=== PATIENT | male | born 1965 | race Caucasian/White ===

== ENCOUNTER 2019-01-07 20:23 | Emergency (ER) | payer MEDICARE, MEDICAID, SELFPAY ==
[2019-01-07 20:30] VITALS: BP 137/83; PULSE 67; RESP 17; TEMP 36.9; O2SAT 96; BMI 19.8
--- NOTE | 2019-01-07 20:54 | HMH.EDWNDL ---
ED Disposition Clinical Impression: Laceration Disposition: Home, Self-Care Condition on Discharge: Good Instructions: DI for Laceration Repair Additional Instructions: suture out 10-12 days and recheck if needed Prescriptions: cephALEXin [Keflex 500mg Cap] 500 mg PO TID #30 cap Referrals: Provider,Referral, [Referring] - - Critical Care Critical Care Time: No Attestation: On 01/07/19, the high probability of a clinically significant, sudden or life threatening deterioration of the following system(s) required my full and direct attention, intervention and personal management. The time I documented below is in addition to time spent performing reported procedures but includes the following listed in this critical care notation. Medical Decision Making - Medical Records Medical records reviewed: Yes: I reviewed the patient's medical records. - [place]ington Inquiry Pt receiving controlled substance: No Vital Signs: 01/07/19 20:30 Temperature 98.4 F Temperature Source Oral Pulse Rate [Right] 67 Respiratory Rate 17 Blood Pressure [Right Arm] 137/83 Blood Pressure Mean [Right Arm] 101 02 Sat by Pulse Oximetry 96 Oxygen Delivery Method Room Air Wound/Laceration HPI - General Chief Complaint: Wound/Laceration Stated Complaint: Cut on Hand Time Seen by Provider: 01/07/19 20:40 Mode of Arrival: Ambulatory Limitations: No Limitations Description of Symptoms (Recalled from ER Triage Doc. by RN): Laceration left hand - History of Present Illness HPI narrative: lac lt thumb last pm - he denied any other c/o Onset (ago): day(s) Extremity Location: Left: hand Place: home Patient tetanus UTD: Yes Context: accidental Associated symptoms: none - Related Data Previous Rx's Medication Instructions Recorded cephALEXin [Keflex 500mg Cap] 500 mg PO TID #30 cap 01/07/19 Allergies Allergy/AdvReac Type Severity Reaction Status Date / Time No Known Allergies Allergy Unverified 07/13/17 14:32 [facility] History - Hepatitis A Screen Drug use history?: Yes High risk sexual behaviors?: No History of sexually transmitted infection?: No Currently employed?: No Childcare worker?: No Do you have indoor plumbing?: Yes Do you have electricity?: Yes Attestation statement:: This patient has been screened for Hepatitis A risk factors. I have reviewed the patient's past medical history: Yes Medical History: Denies:: Cancer, Diabetes Mellitus Type 1, Diabetes Mellitus Type 2, MRSA Amputation: No Fractures: Yes (cheek, right leg) - Social History Educational Level: Attended Grade School Smoking Status: Current every day smoker Tobacco Type: cigarettes # Packs/Day (cigarettes): 3 #Yrs smoked (if former smoker): 40 Alcohol Intake: current Alcohol Intake Frequency:: 3 or more drinks per day Substance Use Type: marijuana Last Used Substance: unknown Occupational Status: unemployed Housing: apartment Household Members: none - Psychiatric History Expresses thoughts of harming self/others: None Suicide Plan Description: No Plan ROS Obtained: Yes All systems reviewed & no additional complaints - Constitutional Constitutional: Denies fever(s) - Eyes Eyes: Denies change in vision - ENT Ears, Nose, Mouth, and Throat: Denies sore throat - Cardiovascular Cardiovascular: Denies chest pain at rest - Respiratory Respiratory: No cough - Gastrointestinal Gastrointestingal: Denies: abdominal pain - Genitourinary Male Genitourinary: Denies flank pain - Musculoskeletal Musculoskeletal: Denies joint pain, Denies joint swelling - Integumentary/Breasts Skin/Breast: Reports as per HPI, Denies rash, Reports other (lac 1.5 cm lt thumb ) - Neurologic Neurologic: Denies seizure-like activity Physical Exam - General General appearance: alert - Head Head exam: normocephalic - Eye Eye exam: Present: PERRL, EOMI - ENT ENT exam: Present: normal oropharynx - Neck Neck exam: Prese
--- NOTE | 2019-01-07 20:57 | ED_ITS ---
ED Disposition Clinical Impression: Laceration Disposition: Home, Self-Care Condition on Discharge: Good Instructions: DI for Laceration Repair Additional Instructions: suture out 10-12 days and recheck if needed Prescriptions: cephALEXin [Keflex 500mg Cap] 500 mg PO TID #30 cap Referrals: Provider,Referral, [Referring] - - Critical Care Critical Care Time: No Attestation: On 01/07/19, the high probability of a clinically significant, sudden or life threatening deterioration of the following system(s) required my full and direct attention, intervention and personal management. The time I documented below is in addition to time spent performing reported procedures but includes the following listed in this critical care notation. Medical Decision Making - Medical Records Medical records reviewed: Yes: I reviewed the patient's medical records. - Remington Inquiry Pt receiving controlled substance: No Vital Signs: 01/07/19 20:30 Temperature 98.4 F Temperature Source Oral Pulse Rate [Right] 67 Respiratory Rate 17 Blood Pressure [Right Arm] 137/83 Blood Pressure Mean [Right Arm] 101 02 Sat by Pulse Oximetry 96 Oxygen Delivery Method Room Air Wound/Laceration HPI - General Chief Complaint: Wound/Laceration Stated Complaint: Cut on Hand Time Seen by Provider: 01/07/19 20:40 Mode of Arrival: Ambulatory Limitations: No Limitations Description of Symptoms (Recalled from ER Triage Doc. by RN): Laceration left hand - History of Present Illness HPI narrative: lac lt thumb last pm - he denied any other c/o Onset (ago): day(s) Extremity Location: Left: hand Place: home Patient tetanus UTD: Yes Context: accidental Associated symptoms: none - Related Data Previous Rx's Medication Instructions Recorded cephALEXin [Keflex 500mg Cap] 500 mg PO TID #30 cap 01/07/19 Allergies Allergy/AdvReac Type Severity Reaction Status Date / Time No Known Allergies Allergy Unverified 07/13/17 14:32 [facility] History - Hepatitis A Screen Drug use history?: Yes High risk sexual behaviors?: No History of sexually transmitted infection?: No Currently employed?: No Childcare worker?: No Do you have indoor plumbing?: Yes Do you have electricity?: Yes Attestation statement:: This patient has been screened for Hepatitis A risk factors. I have reviewed the patient's past medical history: Yes Medical History: Denies:: Cancer, Diabetes Mellitus Type 1, Diabetes Mellitus Type 2, MRSA Amputation: No Fractures: Yes (cheek, right leg) - Social History Educational Level: Attended Grade School Smoking Status: Current every day smoker Tobacco Type: cigarettes # Packs/Day (cigarettes): 3 #Yrs smoked (if former smoker): 40 Alcohol Intake: current Alcohol Intake Frequency:: 3 or more drinks per day Substance Use Type: marijuana Last Used Substance: unknown Occupational Status: unemployed Housing: apartment Household Members: none - Psychiatric History Expresses thoughts of harming self/others: None Suicide Plan Description: No Plan ROS Obtained: Yes All systems reviewed & no additional complaints - Constitutional Constitutional: Denies fever(s) - Eyes Eyes: Denies change
[2019-01-07 21:14] VITALS: BP 131/76; PULSE 64; RESP 17; TEMP 36.9; O2SAT 97
== END 2019-01-07 21:14 | disposition home or self-care (01) ==
PROVIDERS: Emergency Provider Emergency Medicine; PCP Family Medicine
DX: S61.012A Laceration without foreign body of left thumb without damage to nail, initial encounter (principal); F17.210 Nicotine dependence, cigarettes, uncomplicated
CPT/HCPCS: 12001; 99282

== ENCOUNTER 2024-12-25 21:09 | Emergency (ER) | payer MEDICARE, MEDICAID, SELFPAY ==
[2024-12-25 21:22] VITALS: BP 130/92; PULSE 78; RESP 16; TEMP 36.6; O2SAT 96; BMI 17.2
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
--- NOTE | 2024-12-25 21:31 | PC.NURSE ---
Lab in room at this time obtaining legal blood draw.
--- NOTE | 2024-12-25 21:32 | PC.NURSE ---
Lab staff at the bedside to obtain legal blood work. No IV placed. Pt aox4, NAD noted, RR even and non labored, skin pwd.
[2024-12-25 21:45] VITALS: BP 130/62; PULSE 76; RESP 18; TEMP 36.6; O2SAT 95
== END 2024-12-25 21:47 | disposition home or self-care (01) ==
PROVIDERS: Emergency Provider Emergency Medicine
DX: Z00.8 Encounter for other general examination (principal)
CPT/HCPCS: 99281